=== PATIENT | male | born 1980 | race African-American/Black ===

== ENCOUNTER 2020-11-13 16:47 | Emergency (ER) | payer SELFPAY ==
[~2020-11-13] VITALS: Ht 175.3 cm; Wt 92.0 kg
[2020-11-13 17:05] VITALS: BP 164/94
--- NOTE | 2020-11-13 17:55 | PHYS DOC ---
General Adult EDM: Chief Complaint: EYE PROBLEMS HPI: HPI: Patient is a 40 year old male who presents with couple days ago blew his nose and then after that he started having some blurred vision with the left eye being worse than the right eye. He states that every now and then he will see swirling or a red type light. He states that his eyes have been tested before and he does not have to wear any kind glasses. He states he does not have an eye doctor. He denies any pain, loss of vision, headache, dizziness, focal weakness, numbness or tingling, pain with movement of his eyes, light sensitivity. He denies any past medical history or history of hypertension. Review of Systems: Review of Systems: Constitutional: Denies fever or chills. [] Eyes: + change in visual acuity. [] HENT: Denies nasal congestion or sore throat. [] Respiratory: Denies cough or shortness of breath. [] Cardiovascular: Denies chest pain or edema. [] GI: Denies abdominal pain, nausea, vomiting, bloody stools or diarrhea. [] : Denies dysuria. [] Musculoskeletal: Denies back pain or joint pain. [] Integument: Denies rash. [] Neurologic: Denies headache, focal weakness or sensory changes. [] Endocrine: Denies polyuria or polydipsia. [] Lymphatic: Denies swollen glands. [] Psychiatric: Denies depression or anxiety. [] Heart Score: Risk Factors: Risk Factors: DM, Current or recent (<one month) smoker, HTN, HLP, family history of CAD, obesity. Risk Scores: Score 0 - 3: 2.5% MACE over next 6 weeks - Discharge Home Score 4 - 6: 20.3% MACE over next 6 weeks - Admit for Clinical Observation Score 7 - 10: 72.7% MACE over next 6 weeks - Early Invasive Strategies Physical Exam: PE: Constitutional: Well developed, well nourished, no acute distress, non-toxic appearance. [] HENT: Normocephalic, atraumatic, bilateral external ears normal, oropharynx moist, no oral exudates, nose normal. [] Eyes: PERRLA, EOMI, conjunctiva normal, no discharge. [] Neck: Normal range of motion, no tenderness, supple, no stridor. [] Cardiovascular:Heart rate regular rhythm, no murmur [] Lungs & Thorax: Bilateral breath sounds clear to auscultation [] Abdomen: Bowel sounds normal, soft, no tenderness, no masses, no pulsatile masses. [] Skin: Warm, dry, no erythema, no rash. [] Back: No tenderness, no CVA tenderness. [] Extremities: No tenderness, no cyanosis, no clubbing, ROM intact, no edema. [] Neurologic: Alert and oriented X 3, normal motor function, normal sensory func tion, no focal deficits noted. [] Psychologic: Affect normal, judgement normal, mood normal. Normal physical exam [] EKG: EKG: [] Radiology/Procedures: Radiology/Procedures: [] Course & Med Decision Making: Course & Med Decision Making Pertinent Labs and Imaging studies reviewed. (See chart for details) See HPI. SANTIAGO. Speaks in full complete sentences. Alert and oriented x4. Ambulatory with a steady gait. Conjunctivae is white and there is no hemorrhages. He denies getting anything in his eye or any eye injuries. I spoke to Dr. Arellano concerning this patient and the care plan. She states he needs to follow-up with her primary care physician. [] Dragon Disclaimer: Dragdarshan Disclaimer: This electronic medical record was generated, in whole or in part, using a voice recognition dictation system. Departure Departure Impression: Primary Impression: Vision changes Disposition: 01 DC HOME SELF CARE/HOMELESS Condition: STABLE Referrals: NO PCP (PCP) Rodger ALBERT MD Patient Instructions: Eye - Blurred Vision Additional Instructions: Follow-up with your primary care provider or any eye doctor of your choosing as soon as possible. If you lose vision or begin having headache or dizziness return to emergency room. KP [employer] Nov 13, 2020 17:54
== END 2020-11-13 18:10 | disposition home or self-care (01) ==
LOC: ER 16:47
DX: H53.8 Other visual disturbances (principal)
CPT/HCPCS: 99282